=== PATIENT | female | born 1965 | race Caucasian/White ===

== ENCOUNTER 2016-05-07 07:19 | Emergency (ER) | payer BC ==
[2016-05-07 07:35] VITALS: TEMP 97.8; BMI 39.4
[2016-05-07 08:24] LABS: AUTOMATED BASOPHIL 0.7 % (0-2); AUTOMATED EOSINOPHIL 1.1 % (0-5); AUTOMATED LYMPH 26.3 % (17-44); AUTOMATED MONOCYTE 4.9 % (3-10); MPV 8.7 fL (7.4-10.4)
[2016-05-07 08:44] LABS: BLOOD UREA NITROGEN 15 MG/DL (7-17); CALCULATED OSMOLALITY 275 MOs/Kg (270-290); CHLORIDE 100 mEq/L (98-107); GLUCOSE 147 MG/DL (70-99); SODIUM LEVEL 141 mEq/L (137-146); TOTAL PROTEIN 7.3 G/DL (6.3-8.2)
[2016-05-07] MEDS ORDERED: DIAZEPAM 10 MG/2 ML TUBEX IV ONE (08:48)
[2016-05-07] MEDS ORDERED: ONDANSETRON HCL 4 MG/2 ML VIAL IV ONE (08:48)
[2016-05-07] MEDS ORDERED: SODIUM CHLORIDE 0.9% 3 ML FLUSH FLUSH PRN (08:49)
[2016-05-07] MEDS ORDERED: MECLIZINE 25 MG TAB PO ONE (08:49)
[2016-05-07] MEDS: NS 1,000 ML IV SCH ×2 (09:01→10:06)
--- NOTE | 2016-05-07 09:10 | EDPRACDOC ---
- General Information Information Source: Patient Mode Of Arrival: Car - History of Present Illness Onset: WED Exact Onset of Symptoms: Known Date Symptoms Started: 05/03/16 HPI: PT STATES SHE HAS BEEN HAVING DIZZINESS WITH THE ROOM SPINNING N/V AND HEADACHE THAT GETS WORSE WHEN SHE CHANGES POSITIONS FOR APPROX 4 DAYS. Symptoms Started: Reports: Suddenly Symptoms Description: Constant Weakness: Bilateral: Generalized Symptoms: Reports: Vertigo Symptom Severity: Reports: Unable to performs ADL's Associated signs and symptoms:: Reports: Headache, Nausea, Vomiting <Rylie Amaro - Last Filed: 05/07/16 10:03> <Lindsay Flores - Last Filed: 05/07/16 10:29> - General Information Chief Complaint: Generalized Weakness Stated Complaint: DIZZINESS Time Seen by Provider: 05/07/16 08:45 Home Medications: Home Medications Cholecalciferol (Vitamin D3) [Vitamin D3] 1,000 unit PO DAILY 05/07/16 Ezetimibe [Zetia] 10 mg PO DAILY 05/07/16 Lisinopril/Hydrochlorothiazide [Lisinopril-Hctz 20-25 mg Tab] 1 each PO DAILY Lorazepam [Ativan] 0.5 mg PO TID PRN #20 tab 05/07/16 Meclizine HCl 25 mg PO Q6 PRN #20 tablet 05/07/16 Ondansetron HCl [Zofran] 4 mg PO TID PRN #14 tablet 05/07/16 Paroxetine HCl [Paxil] 20 mg PO DAILY 05/07/16 Allergies/Adverse Reactions: Allergies Allergy/AdvReac Type Severity Reaction Status Date / Time No Known Allergies Allergy Verified 05/07/16 07:35 ED Past Medical History - History Reviewed Yes Nurses notes reviewed and agree except as marked Travel Outside of [place] in the Last 3 Months?: No - Patient Medical History Cardiac History: Reports: Hypertension, Hypercholesterolemia - Social Medical History ETOH: None Substance Abuse: None Lives With: Spouse Lives In: Home <Rylie Amaro - Last Filed: 05/07/16 10:03> EDM Review of Systems - Review of Systems ROS Negative Except as Marked: Yes All systems reviewed and were negative except as marked Constitutional: No Symptoms Reported. negative: Fever, Chills, Weakness, Fatigue, Loss of Appetite Eyes: No Symptoms Reported. negative: Redness, Blurred Vision, Double Vision, Discharge, Pain, Light Sensitive, Photophobia Ears: No Symptoms Reported. negative: Pain, Hearing Loss, Drainage, Ear Pulling Throat: No Symptoms Reported. negative: Pain, Swelling Nose: No Symptoms Reported. negative: Congestion, Bleeding, Discharge, Injection, Swelling, Deformity, Ecchymosis, Tender, Abrasion, Laceration Mouth: No Symptoms Reported. negative: Pain, Drooling Respiratory: No Symptoms Reported. negative: Cough, Brassy Cough, Barky Cough, Shortness of Breath, Wheezing, Hemoptysis Cardiovascular: No Symptoms Reported. negative: Chest Pain, Palpitations, Syncope, Edema, Orthopnea, PND, Skin Mottling, Cyanosis Gastrointestinal: Nausea, Vomiting (WITH CHANGING POSITIONS). negative: Constipation, Diarrhea, Formula Intolerance, Melena, Pain Genitourinary: No Symptoms Reported. negative: Dysuria, Hematuria, Frequency, Discharge, Bleeding, Testicular Pain, Neurological: Dizziness, Headache, Vertigo. negative: Gait Difficulty, Numbness , Seizure, Speech Difficulty, Weakness Musculoskeletal: No Symptoms Reported. negative: Neck, Chestwall, Ribs, Back, Shoulder, Arm, Elbow, Forearm, Wrist, Hand, Pelvis, Hip, Femur, Knee, Leg, Ankle , Foot Integumentary: No Symptoms Reported. negative: Itching, Rash, Bruising, Wound Allergic/Immunologic: No Symptoms Reported. negative: Hives, Itching Hematologic: No Symptoms Reported. negative: Lymphadenopathy, Easy Bruising, Easy Bleeding Endocrine: No Symptoms Reported. negative: Weight Gain, Weight Loss Psychiatric: No Symptoms Reported. negative: Anxiety, Depression, Hallucinations, Insomnia, Suicidal <Rylie Amaro - Last Filed: 05/07/16 10:03> - Physical Exam Constitutional: Alert (Awake), No apparent distress Oriented to: Time, Person, Place Last recorded Vital Signs: Last Vital Signs Temp 97.8 F 05/07/16 07:33 Pulse 60 05/07/16 07:33 Resp 18 05/07/16 07:33 BP 136/80 05/07/16 07:33 Pulse Ox 97 05/07/16 07:33 Oxygen Pulse Oxygen Saturation 97 O2 Device Room Air Oxygen Flow Rate Fraction of Inspired Oxygen ( FIO2) - HEENT Head: Normal ( normocephalic) Eye Exam: Other (HORIZONTAL [place]) Oropharynx: Normal (Pharynx:Moist without exudate,Gums-no swelling) Tympanic Membrane: Normal ENT EAC: Normal TMJ: Normal Nose: No Symptoms Reported (septum midline) Neck: Normal (FROM, trachea at midline) - Respiratory/Cardiovascular Respiratory: Normal - CTA (BBS clear to auscultation without adventitious sounds ) Cardiovascular: Normal (RRR without murmur, gallop or rub) - GI Auscultation: Normal (NABS) Palpation: Normal (Soft,No rebound or guarding, non distended) Tenderness: Non tender Kim's Sign: Negative - Bladder: Normal - Musculoskeletal Back: Normal (Non-Tender) Extremities: Normal (Normal tone, Pulses 2+ No cyanosis or edema, FROM) - Integumentary Skin: Normal, Warm, Dry Lymphatics: Normal (no adenopathy) - Neurologic Memory Impaired: Normal Motor Function: Normal (Normal tone, Pulses 2+ No cyanosis or edema, FROM) Cranial Nerve: Normal (CN II-X11 intact sensation, strength 5/5) Cerebellar: Normal Mood Description: Normal Perception: Normal <Rylie Amaro - Last Filed: 05/07/16 10:03> - Physical Exam Last recorded Vital Signs: Last Vital Signs Temp 97.8 F 05/07/16 07:33 Pulse 60 05/07/16 09:35 Resp 18 05/07/16 08:45 BP 118/81 05/07/16 09:35 Pulse Ox 97 05/07/16 09:35 Oxygen Pulse Oxygen Saturation 97 O2 Device Room Air Oxygen Flow Rate Fraction of Inspired Oxygen ( FIO2) <Lindsay Flores - Last Filed: 05/07/16 10:29> NIH Stroke Scale Initial Evaluation Level of Consciousness: Alert LOC- Question: Answers Both Correctly LOC Commands: Both Task Correctly Best Gaze: Normal Visual: No Visual Loss Facial Palsy: Normal Movement Motor Arm LEFT: No Drift Motor Arm RIGHT: No Drift Motor Leg LEFT: No Drift Motor Leg RIGHT: No Drift Limb Ataxia: Absent Sensory: Normal Best Language: No Aphasia Dysarthria: Normal Extinction and Inattention: No Abnormality (Neglect) Score: 0out of42 <Rylie Amaro - Last Filed: 05/07/16 10:03> - Differential Diagnosis Anemia, CVA, Dehydration, Electrolyte disorder - Results 05/07/16 08:12 05/07/16 08:12 WBC 8.1 xk/uL (3.8-10.8) 05/07/16 08:12 RBC 5.60 xM/uL (4.20-5.40) H 05/07/16 08:12 Hgb 15.3 g/dL (12.0-16.0) 05/07/16 08:12 Hct 46.3 % (36-47) 05/07/16 08:12 MCV 83 fL (81-99) 05/07/16 08:12 MCH 27.3 pg (27-32) 05/07/16 08:12 MCHC 33.1 g/dl (33-36) 05/07/16 08:12 RDW 15.1 % (11.5-14.5) H 05/07/16 08:12 Plt Count 211 xk/uL (130-400) 05/07/16 08:12 MPV 8.7 fL (7.4-10.4) 05/07/16 08:12 Neut % (Auto) 67.0 % (45-76) 05/07/16 08:12 Lymph % (Auto) 26.3 % (17-44) 05/07/16 08:12 [place] % (Auto) 4.9 % (3-10) 05/07/16 08:12 Eos % (Auto) 1.1 % (0-5) 05/07/16 08:12 Baso % (Auto) 0.7 % (0-2) 05/07/16 08:12 Absolute Neuts (auto) 5.43 xk/uL (1.7-8.2) 05/07/16 08:12 Absolute Lymphs (auto) 2.11 xk/uL (0.65-4.75) 05/07/16 08:12 Sodium 141 mEq/L (137-146) 05/07/16 08:12 Potassium 3.3 mEq/L (3.5-5.1) L 05/07/16 08:12 Chloride 100 mEq/L (98-107) 05/07/16 08:12 Carbon Dioxide 29 mMOL/L (22-33) 05/07/16 08:12 Anion Gap 15 mEq/L (8-16) 05/07/16 08:12 BUN 15 MG/DL (7-17) 05/07/16 08:12 Creatinine 0.70 MG/DL (0.52-1.04) 05/07/16 08:12 Estimated GFR (MDRD) > 60 mL/min (>=60) 05/07/16 08:12 Glucose 147 MG/DL (70-99) H 05/07/16 08:12 Calculated Osmolality 275 MOs/Kg (270-290) 05/07/16 08:12 Calcium 9.0 MG/DL (8.4-10.2) 05/07/16 08:12 Total Bilirubin 0.5 MG/DL (0.2-1.3) 05/07/16 08:12 AST 29 IU/L (14-36) 05/07/16 08:12 ALT 48 IU/L (9-52) 05/07/16 08:12 Alkaline Phosphatase 70 IU/L (38-126) 05/07/16 08:12 Total Protein 7.3 G/DL (6.3-8.2) 05/07/16 08:12 Albumin 4.2 G/DL (3.5-5.0) 05/07/16 08:12 Lab Results 05/07/16 05/07/16 08:12 08:12 WBC 8.1 RBC 5.60 H Hgb 15.3 Hct 46.3 MCV 83 MCH 27.3 MCHC 33.1 RDW 15.1 H Plt Count 211 MPV 8.7 Neut % (Auto) 67.0 Lymph % (Auto) 26.3 [place] % (Auto) 4.9 Eos % (Auto) 1.1 Baso % (Auto) 0.7 Absolute Neuts (auto) 5.43 Absolute Lymphs (auto) 2.11 Sodium 141 Potassium 3.3 L Chloride 100 Carbon Dioxide 29 Anion Gap 15 BUN 15 Creatinine 0.70 Estimated GFR (MDRD) > 60 Glucose 147 H Calculated Osmolality 275 Calcium 9.0 Total Bilirubin 0.5 AST 29 ALT 48 Alkaline Phosphatase 70 Total Protein 7.3 Albumin 4.2 - Diagnostic Imaging CT HEAD Image interpreted by: Radiologist IMPRESSION: Normal head CT. <Rylie Amaro - Last Filed: 05/07/16 10:03> - Results 05/07/16 08:12 05/07/16 08:12 WBC 8.1 xk/uL (3.8-10.8) 05/07/16 08:12 RBC 5.60 xM/uL (4.20-5.40) H 05/07/16 08:12 Hgb 15.3 g/dL (12.0-16.0) 05/07/16 08:12 Hct 46.3 % (36-47) 05/07/16 08:12 MCV 83 fL (81-99) 05/07/16 08:12 MCH 27.3 pg (27-32) 05/07/16 08:12 MCHC 33.1 g/dl (33-36) 05/07/16 08:12 RDW 15.1 % (11.5-14.5) H 05/07/16 08:12 Plt Count 211 xk/uL (130-400) 05/07/16 08:12 MPV 8.7 fL (7.4-10.4) 05/07/16 08:12 Neut % (Auto) 67.0 % (45-76) 05/07/16 08:12 Lymph % (Auto) 26.3 % (17-44) 05/07/16 08:12 [place] % (Auto) 4.9 % (3-10) 05/07/16 08:12 Eos % (Auto) 1.1 % (0-5) 05/07/16 08:12 Baso % (Auto) 0.7 % (0-2) 05/07/16 08:12 Absolute Neuts (auto) 5.43 xk/uL (1.7-8.2) 05/07/16 08:12 Absolute Lymphs (auto) 2.11 xk/uL (0.65-4.75) 05/07/16 08:12 Sodium 141 mEq/L (137-146) 05/07/16 08:12 Potassium 3.3 mEq/L (3.5-5.1) L 05/07/16 08:12 Chloride 100 mEq/L (98-107) 05/07/16 08:12 Carbon Dioxide 29 mMOL/L (22-33) 05/07/16 08:12 Anion Gap 15 mEq/L (8-16) 05/07/16 08:12 BUN 15 MG/DL (7-17) 05/07/16 08:12 Creatinine 0.70 MG/DL (0.52-1.04) 05/07/16 08:12 Estimated GFR (MDRD) > 60 mL/min (>=60) 05/07/16 08:12 Glucose 147 MG/DL (70-99) H 05/07/16 08:12 Calculated Osmolality 275 MOs/Kg (270-290) 05/07/16 08:12 Calcium 9.0 MG/DL (8.4-10.2) 05/07/16 08:12 Total Bilirubin 0.5 MG/DL (0.2-1.3) 05/07/16 08:12 AST 29 IU/L (14-36) 05/07/16 08:12 ALT 48 IU/L (9-52) 05/07/16 08:12 Alkaline Phosphatase 70 IU/L (38-126) 05/07/16 08:12 Total Protein 7.3 G/DL (6.3-8.2) 05/07/16 08:12 Albumin 4.2 G/DL (3.5-5.0) 05/07/16 08:12 Urine Color Yellow 05/07/16 08:00 Urine Clarity Clear 05/07/16 08:00 Urine pH 5.0 (5.0-8.0) 05/07/16 08:00 Ur Specific [place] 1.030 (1.003-1.035) 05/07/16 08:00 Urine Protein 1+ (NEG/TRACE) H 05/07/16 08:00 Urine Glucose (UA) Neg (NEGATIVE) 05/07/16 08:00 Urine Ketones Neg (NEGATIVE) 05/07/16 08:00 Urine Occult Blood Neg (NEG/TRACE) 05/07/16 08:00 Urine Nitrite Neg (NEGATIVE) 05/07/16 08:00 Urine Bilirubin Neg (NEGATIVE) 05/07/16 08:00 Urine Urobilinogen <2.0 MG/DL (0-1) 05/07/16 08:00 Ur Leukocyte Esterase Neg (NEGATIVE) 05/07/16 08:00 Urine RBC 0-2 (0-5) 05/07/16 08:00 Urine WBC 0-2 (0-5) 05/07/16 08:00 Ur Epithelial Cells 1+ 05/07/16 08:00 Urine Bacteria 2+ (NEG/FEW) H 05/07/16 08:00 Urine Mucus Occ (NEG/OCC) 05/07/16 08:00 Lab Results 05/07/16 05/07/16 05/07/16 08:12 08:12 08:00 WBC 8.1 RBC 5.60 H Hgb 15.3 Hct 46.3 MCV 83 MCH 27.3 MCHC 33.1 RDW 15.1 H Plt Count 211 MPV 8.7 Neut % (Auto) 67.0 Lymph % (Auto) 26.3 [place] % (Auto) 4.9 Eos % (Auto) 1.1 Baso % (Auto) 0.7 Absolute Neuts (auto) 5.43 Absolute Lymphs (auto) 2.11 Sodium 141 Potassium 3.3 L Chloride 100 Carbon Dioxide 29 Anion Gap 15 BUN 15 Creatinine 0.70 Estimated GFR (MDRD) > 60 Glucose 147 H Calculated Osmolality 275 Calcium 9.0 Total Bilirubin 0.5 AST 29 ALT 48 Alkaline Phosphatase 70 Total Protein 7.3 Albumin 4.2 Urine Color Yellow Urine Clarity Clear Urine pH 5.0 Ur Specific [place] 1.030 Urine Protein 1+ H Urine Glucose (UA) Neg Urine Ketones Neg Urine Occult Blood Neg Urine Nitrite Neg Urine Bilirubin Neg Urine Urobilinogen <2.0 Ur Leukocyte Esterase Neg Urine RBC 0-2 Urine WBC 0-2 Ur Epithelial Cells 1+ Urine Bacteria 2+ H Urine Mucus Occ - EKG EKG #1 EKG Time: 07:41 -: Yes EKG interpreted by me Rate: bpm: 62 [place]: Normal Rhythm: NSR Block: None Hypertrophy: None ST: Normal - Diagnostic Imaging Head Image interpreted by: Radiologist Patient Name: DK GUARDADO LOC: ED : 1965 AGE: 50 Order Date:05/07/16 Date of Service:05/23 Report # [id number] Ord Physician: Rylie Amaro Exam # [id number] Emergency Physician: Lindsay Flores MD Exam(s): [id number] CT/CT HEAD W/O CM CLINICAL DATA: Dizziness, nausea. EXAM: CT HEAD WITHOUT CONTRAST TECHNIQUE: Contiguous axial images were obtained from the base of the skull through the vertex without intravenous contrast. COMPARISON: None. FINDINGS: Bony calvarium appears intact. No mass effect or midline shift is noted. Ventricular size is within normal limits. There is no evidence of mass lesion, hemorrhage or acute infarction. IMPRESSION: Normal head CT. Electronically Signed By: Javy Alvarez Jr, M.D. On: 05/07/2016 09:44 Electronically Signed By: Javy Alvarez MD Electronically Signed Date/Time: [id number] Dictate Date/Time: 05/07/16 0939 Technologist: Jaclyn Stokes Transcribed By: Fredy Transcribed Date/Time: 05/07/16 0944 <Lindsay Flores - Last Filed: 05/07/16 10:29> Decision Time to Discharge: 10:03 <Rylie Amaro - Last Filed: 05/07/16 10:03> - Departure Disposition: Home Education/Counseling Given To: Patient, Family Member Education/Counseling Given Regarding: Diagnosis, Treatment, Prognosis <Lindsay Flores - Last Filed: 05/07/16 10:29> - Departure Condition: Stable Final Diagnosis: Peripheral vertigo Qualifiers: Laterality: unspecified laterality Qualified Code(s): H81.399 - Other peripheral vertigo, unspecified ear Instructions: Weakness (General), Benign Paroxysmal Positional Vertigo (ED) Referrals: Deena Hahn PA [Staff Physician Sexologist] - One Week Prescriptions: Lorazepam [Ativan] 0.5 mg PO TID PRN #20 tab PRN Reason: Vertigo Meclizine HCl 25 mg PO Q6 PRN #20 tablet PRN Reason: Vertigo Ondansetron HCl [Zofran] 4 mg PO TID PRN #14 tablet PRN Reason: NAUSEA OR VOMITING Additional Instructions: RETURN FOR WORSE OR DIFFERENT SYMPTOMS.
[2016-05-07 09:13] LABS: LEUKOCYTES/URINE NEG (NEGATIVE); NITRITE/URINE NEG (NEGATIVE); RBC/URINE 0-2 (0-5); URINE OCCULT BLOOD NEG (NEG/TRACE); WBC/URINE 0-2 (0-5)
--- NOTE | 2016-05-07 09:46 | DIRPT ---
CLINICAL DATA: Dizziness, nausea. EXAM: CT HEAD WITHOUT CONTRAST TECHNIQUE: Contiguous axial images were obtained from the base of the skull through the vertex without intravenous contrast. COMPARISON: None. FINDINGS: Bony calvarium appears intact. No mass effect or midline shift is noted. Ventricular size is within normal limits. There is no evidence of mass lesion, hemorrhage or acute infarction. IMPRESSION: Normal head CT. Electronically Signed By: Javy Alvarez Jr, M.D. On: 05/07/2016 09:44
[2016-05-07 10:59] VITALS: BP 123/70; PULSE 65
[2016-05-07] MEDS ORDERED: SODIUM CHLORIDE 0.9% 3 ML FLUSH FLUSH SCH (18:00)
== END 2016-05-07 11:00 | disposition home or self-care (01) ==
LOC: ED 07:19
DX: H81.399 Other peripheral vertigo, unspecified ear (principal); I10 Essential (primary) hypertension; E78.00 Pure hypercholesterolemia, unspecified; Z79.899 Other long term (current) drug therapy
CPT/HCPCS: 36415; 70450; 80053; 81001; 85025; 96361; 96374; 96375; 99284; J2405; J3360; J3490